=== PATIENT | male | born 1975 | race Hispanic/Latino ===

== ENCOUNTER 2017-10-19 11:14 | Emergency (ER) | payer BC, SELFPAY ==
--- NOTE | 2017-10-19 13:51 | RAD ---
PA AND LATERAL VIEWS OF CHEST: Date: 10/19/17 HISTORY: Cough, congestion, chest wall pain. FINDINGS/IMPRESSION: Comparison made with exam of 02/13/15. There are mild infiltrates in the posterior basilar lung romero suspicious for pneumonia. No pneumoth oraces or pleural effusions are seen. POS: [facility]
[2017-10-19] MEDS ORDERED: Ketorolac Tromethamine 30 MG/ML VIAL ONE (14:04)
== END 2017-10-19 16:00 | disposition home or self-care (01) ==
LOC: ERS 11:14
DX: J18.9 Pneumonia, unspecified organism (principal); R07.81 Pleurodynia; K21.9 Gastro-esophageal reflux disease without esophagitis; I10 Essential (primary) hypertension; F41.9 Anxiety disorder, unspecified; F17.220 Nicotine dependence, chewing tobacco, uncomplicated
CPT/HCPCS: 71046; 93005; 94640; 96372; J1885; J7620

== ENCOUNTER 2017-12-28 08:48 | Emergency (ER) | payer SELFPAY ==
[2017-12-28] MEDS ORDERED: Fluorescein Opthalmic Strip ONE (09:43)
[2017-12-28] MEDS ORDERED: Proparacaine 0.5% Opth 15 ML BOT ONE (09:43)
== END 2017-12-28 10:24 | disposition home or self-care (01) ==
LOC: ERS 08:48
DX: S05.01XA Injury of conjunctiva and corneal abrasion without foreign body, right eye, initial encounter (principal); K21.9 Gastro-esophageal reflux disease without esophagitis; I10 Essential (primary) hypertension; F41.9 Anxiety disorder, unspecified; F17.220 Nicotine dependence, chewing tobacco, uncomplicated; W22.8XXA Striking against or struck by other objects, initial encounter
CPT/HCPCS: 99283

== ENCOUNTER 2018-01-18 07:16 | Emergency (ER) | payer SELFPAY ==
[2018-01-18] MEDS ORDERED: Ketorolac Tromethamine 30 MG/ML VIAL ONE (07:54)
[2018-01-18 08:06] LABS: #Eosinphils 0.2 thou/uL (0.0-0.7); #Lymphocytes 1.6 thou/uL (1.20-3.40); #Monocytes 0.5 thou/uL (0.11-0.59); #Neutrophils 7.1 thou/uL (1.40-6.50); %Basophils 0.5 % (0.0-1.0); %Eosinophils 1.8 % (0.0-10.0); %Lymphocytes 17.4 % (21.0-51.0); %Monocytes 5.7 % (0.0-10.0); %Neutrophils 74.6 % (42.0-75.0); Hemoglobin 18.9 g/dL (14.0-18.0); Mean Corpuscular HGB CONC 34.9 g/dL (32.0-36.0); Mean Corpuscular Hemoglobin 31.9 pg (27.0-31.0); Mean Corpuscular Volume 91.4 fl (80.0-94.0); Mean Platelet Volume 7.4 fL (7.4-10.4); Platelet Count 216 thou/uL (130-400); RBC Distribution Width 12.8 % (11.5-14.5); Red Blood Cell (RBC) Count 5.93 mill/uL (4.70-6.10); White Blood Cell (WBC) Count 9.4 thou/uL (4.8-10.8)
[2018-01-18 08:28] LABS: Acetaminophen Less than 6.0 mcg/mL (10.0-30.0); Alcohol Less than 10 mg/dL (Less than 10); Salicylate Less than 8.0 mg/dL (15.0-30.0)
[2018-01-18 08:30] LABS: ALT (SGPT) 35 U/L (8-55); AST (SGOT) 26 U/L (5-34); Albumin 4.7 g/dL (3.5-5.0); Alkaline Phosphatase 116 U/L (40-150); Anion Gap 13 mmol/L (10-20); BUN (Urea Nitrogen) 17 mg/dL (8.9-20.6); Bilirubin, Total 1.7 mg/dL (0.2-1.2); CK (CPK) 402 U/L (30-200); Calc. Creatinine Clearance 0 mL/min (70-130); Calcium 9.5 mg/dL (7.8-10.44); Carbon Dioxide 26 mmol/L (22-29); Chloride 99 mmol/L (98-107); Estimated GFR-MDRD 67; Globulin 3.2 g/dL (2.4-3.5); Glucose 118 mg/dL (70-105); Lipase 36 U/L (8-78); Protein, Total 7.9 g/dL (6.0-8.3); Sodium 135 mmol/L (136-145)
[2018-01-18] MEDS ORDERED: Lorazepam 2 MG/ML VIAL ONE ×3 (09:43→19:40)
--- NOTE | 2018-01-18 09:44 | CT ---
CT ABDOMEN AND PELVIS WITH CONTRAST: Date: 01/18/18 HISTORY: Abdominal pain. Left-sided abdominal pain. COMPARISON: CT abdomen and pelvis from 2015. FINDINGS: Lung bases are clear. No pericardial effusion. Diffuse hepatic steatosis. Spleen, pancreas, and adrenal glands are unremarkable. There is suture material at the level of the rectosigmoid junction, similar to the comparison examina tion. Mild diverticular disease of sigmoid colon without active current inflammation. The appendix is elongated, although is without wall thickening, mucosal hyperenhancement, or periappe ndiceal inflammatory stranding. No adenopathy in the pelvis. No hydronephrosis. Skeleton is unremarkable. IMPRESSION: 1. No acute inflammatory process in the abdomen or pelvis. 2. Mild diverticular disease sigmoid colon without active inflammation. 3. Normal appendix. 4. Mild diffuse hepatic steatosis. POS: [facility]
[2018-01-18] MEDS ORDERED: ISOVUE-370 76%-LOCM 1 ML ONE (13:04)
[2018-01-18 14:26] LABS: Bilirubin Small (Negative); Blood, Urine Negative (Negative); Clarity CLEAR (Clear); Glucose, Urine (Dipstick) Negative (Negative); Leukocyte Negative (Negative); Nitrite Negative (Negative); Protein, Urine (Dipstick) 30 mg/dL (Neg-Trace); pH, Urine 6.5 (5.0-9.0)
[2018-01-18 14:32] LABS: Specific Gravity, Urine Greater than 1.060 (1.002-1.036)
[2018-01-18 14:33] LABS: Bacteria/HPF None Seen HPF (None Seen); Hyaline Casts/LPF 0-3 HYALINE CAST LPF (0-3 Hyaline); Pathc Cast-AUWi Flag 0.14 (0-2.49); RBC/HPF 0-3 HPF (0-3); Squamous Epithelial 0-3 HPF (0-3); WBC/HPF 0-3 HPF (0-3)
[2018-01-18 14:36] LABS: Amphetamine Detected (NotDetected); Barbiturates Screen Not Detected (NotDetected); Benzodiazepine Screen Detected (NotDetected); Cocaine Metabolite Screen Not Detected (NotDetected); Medtox Control Line Valid? VALID (VALID); Medtox Reader # READER 1; Methadone Not Detected (NotDetected); Methamphetamine Detected (NotDetected); Opiate Screen Not Detected (NotDetected); Oxycodone Screen Not Detected (NotDetected); Phencyclidine (PCP) Not Detected (NotDetected); THC/Cannabinoid Screen Not Detected (NotDetected); Tricyclic Screen Not Detected (NotDetected)
[2018-01-18] MEDS ORDERED: Haloperidol Lactate 5 MG/ML VIAL ONE (19:40)
[2018-01-18] MEDS ORDERED: diphenhydrAMINE 50 MG/ML VIAL ONE (19:40)
[2018-01-19] MEDS ORDERED: Ondansetron ODT 4 MG TAB ONE ×2 (06:07→20:50)
[2018-01-19] MEDS ORDERED: traMADol HCl 50 MG TAB ONE (06:40)
[2018-01-19] MEDS ORDERED: Haloperidol Lactate 5 MG/ML VIAL ONE ×2 (07:11→20:37)
[2018-01-19] MEDS ORDERED: Lorazepam 2 MG/ML VIAL ONE ×2 (07:21→20:37)
[2018-01-19] MEDS ORDERED: Ziprasidone 20 MG VIAL ONE (14:16)
--- NOTE | 2018-01-26 15:02 | EKG ---
Test Reason : ABDOMINAL PAIN Blood Pressure : / mmHG Vent. Rate : 092 BPM Atrial Rate : 092 BPM P-R Int : 148 ms QRS Dur : 080 ms QT Int : 358 ms P-R-T Axes : 066 055 056 degrees QTc Int : 442 ms Normal sinus rhythm Septal infarct , age undetermined Abnormal ECG Confirmed by DARA JOSEPH, RIGOBERTO ([id number]), editorial cartoonist NOÉ AUGUSTINE ([id number]) on 01/26/2018 3:02:12 PM Referred By: Confirmed By:RIGOBERTO DIAMOND MD
== END 2018-01-18 10:11 | disposition home or self-care (01) ==
LOC: ERS 07:16
DX: F22 Delusional disorders (principal); F32.9 Major depressive disorder, single episode, unspecified; F13.10 Sedative, hypnotic or anxiolytic abuse, uncomplicated; F41.9 Anxiety disorder, unspecified; R45.851 Suicidal ideations; K21.9 Gastro-esophageal reflux disease without esophagitis; I10 Essential (primary) hypertension; F17.220 Nicotine dependence, chewing tobacco, uncomplicated; Z79.899 Other long term (current) drug therapy
CPT/HCPCS: 74177; 80053; 80306; 80307; 81003; 81015; 82550; 83690; 84443; 85025; 93005; 96361; 96372; 96374; 96375; 96376; J1200; J1630; J1885; J2060; J3486; Q0162

== ENCOUNTER 2018-03-28 12:20 | Emergency (ER) | payer SELFPAY ==
[2018-03-28 12:57] LABS: #Basophils 0.1 thou/uL (0.0-0.2); #Lymphocytes 1.4 thou/uL (1.20-3.40); #Monocytes 0.5 thou/uL (0.11-0.59); #Neutrophils 7.6 thou/uL (1.40-6.50); %Basophils 0.8 % (0.0-1.0); %Eosinophils 0.4 % (0.0-10.0); %Lymphocytes 14.5 % (21.0-51.0); %Monocytes 5.4 % (0.0-10.0); %Neutrophils 78.9 % (42.0-75.0); Hemoglobin 17.1 g/dL (14.0-18.0); Mean Corpuscular Hemoglobin 32.7 pg (27.0-31.0); Mean Corpuscular Volume 93.6 fL (78.0-98.0); Mean Platelet Volume 7.2 fL (7.4-10.4); Platelet Count 182 thou/uL (130-400); RBC Distribution Width 12.6 % (11.5-14.5); Red Blood Cell (RBC) Count 5.22 mill/uL (4.70-6.10); White Blood Cell (WBC) Count 9.7 thou/uL (4.8-10.8)
[2018-03-28 13:22] LABS: ALT (SGPT) 24 U/L (8-55); AST (SGOT) 21 U/L (5-34); Albumin 4.3 g/dL (3.5-5.0); Alkaline Phosphatase 99 U/L (40-150); Anion Gap 15 mmol/L (10-20); BUN (Urea Nitrogen) 10 mg/dL (8.9-20.6); Bilirubin, Total 1.1 mg/dL (0.2-1.2); CK (CPK) 204 U/L (30-200); Calc. Creatinine Clearance 0 mL/min (70-130); Calcium 8.6 mg/dL (7.8-10.44); Carbon Dioxide 19 mmol/L (22-29); Chloride 110 mmol/L (98-107); Estimated GFR-MDRD 67; Globulin 2.5 g/dL (2.4-3.5); Glucose 141 mg/dL (70-105); Potassium 3.5 mmol/L (3.5-5.1); Protein, Total 6.8 g/dL (6.0-8.3); Sodium 140 mmol/L (136-145)
[2018-03-28 13:23] LABS: Bilirubin Negative (Negative); Blood, Urine Negative (Negative); Clarity CLEAR (Clear); Glucose, Urine (Dipstick) Negative (Negative); Leukocyte Negative (Negative); Nitrite Negative (Negative); Protein, Urine (Dipstick) 30 mg/dL (Neg-Trace); Specific Gravity, Urine 1.011 (1.002-1.036)
[2018-03-28 13:25] LABS: Bacteria/HPF None Seen HPF (None Seen); RBC/HPF 0-3 HPF (0-3); Squamous Epithelial 0-3 HPF (0-3); WBC/HPF 0-3 HPF (0-3)
[2018-03-28 13:28] LABS: Pathc Cast-AUWi Flag 3.05 (0-2.49)
[2018-03-28 13:32] LABS: Hyaline Casts/LPF 0-3 HYALINE CAST LPF (0-3 Hyaline); Manual Microscopic Reviewed? No Path Casts Seen
[2018-03-28 13:37] LABS: Amphetamine Detected (NotDetected); Barbiturates Screen Not Detected (NotDetected); Benzodiazepine Screen Not Detected (NotDetected); Cocaine Metabolite Screen Not Detected (NotDetected); Medtox Control Line Valid? VALID (VALID); Medtox Reader # READER 1; Methadone Not Detected (NotDetected); Methamphetamine Detected (NotDetected); Opiate Screen Not Detected (NotDetected); Oxycodone Screen Not Detected (NotDetected); Phencyclidine (PCP) Not Detected (NotDetected); THC/Cannabinoid Screen Not Detected (NotDetected); Tricyclic Screen Not Detected (NotDetected)
--- NOTE | 2018-03-30 23:32 | EKG ---
Test Reason : Blood Pressure : / mmHG Vent. Rate : 107 BPM Atrial Rate : 107 BPM P-R Int : 160 ms QRS Dur : 078 ms QT Int : 348 ms P-R-T Axes : 066 061 -09 degrees QTc Int : 464 ms Sinus tachycardia Possible Left atrial enlargement Nonspecific ST and T wave abnormality U wave Abnormal ECG Confirmed by DEEP JOSEPH, LAURA Delcid ([id number]), manuscript editor JUD SILVA ([id number]) on 03/30/2018 11:32:31 PM Referred By: Confirmed By:LAURA ADAME MD
== END 2018-03-28 14:34 | disposition home or self-care (01) ==
LOC: ERS 12:20
DX: T14.90XA Injury, unspecified, initial encounter (principal); F15.10 Other stimulant abuse, uncomplicated; K21.9 Gastro-esophageal reflux disease without esophagitis; I10 Essential (primary) hypertension; F31.9 Bipolar disorder, unspecified; F41.9 Anxiety disorder, unspecified; F17.220 Nicotine dependence, chewing tobacco, uncomplicated
CPT/HCPCS: 36415; 80053; 80306; 81003; 81015; 82550; 85025; 93005; 96360; 96361

== ENCOUNTER 2018-11-02 21:22 | Emergency (ER) | payer SELFPAY | END 2018-11-02 22:18 | disposition left against medical advice (07) | LOC: ERS 21:22 | DX: Z53.21 Procedure and treatment not carried out due to patient leaving prior to being seen by health care provider (principal) ==

== ENCOUNTER 2018-11-06 00:36 | Inpatient (IN) | payer SELFPAY ==
[2018-11-06] MEDS ORDERED: Ketorolac Tromethamine 30 MG/ML VIAL ONE (00:57)
[2018-11-06 01:08] LABS: #Basophils 0.1 thou/uL (0.0-0.2); #Eosinphils 0.2 thou/uL (0.0-0.7); #Lymphocytes 2.3 thou/uL (1.20-3.40); #Monocytes 0.9 thou/uL (0.11-0.59); %Basophils 0.4 % (0.0-1.0); %Eosinophils 1.3 % (0.0-10.0); %Lymphocytes 15.9 % (21.0-51.0); %Monocytes 6.4 % (0.0-10.0); Hemoglobin 18.7 g/dL (14.0-18.0); Mean Corpuscular HGB CONC 34.1 g/dL (32.0-36.0); Mean Corpuscular Hemoglobin 33.7 pg (27.0-31.0); Mean Corpuscular Volume 98.8 fL (78.0-98.0); Mean Platelet Volume 7.8 fL (7.4-10.4); Platelet Count 208 thou/uL (130-400); RBC Distribution Width 12.7 % (11.5-14.5); Red Blood Cell (RBC) Count 5.56 mill/uL (4.70-6.10); White Blood Cell (WBC) Count 14.5 thou/uL (4.8-10.8)
[2018-11-06 01:39] LABS: ALT (SGPT) 10 U/L (8-55); AST (SGOT) 14 U/L (5-34); Albumin 4.2 g/dL (3.5-5.0); Alkaline Phosphatase 111 U/L (40-150); Anion Gap 10 mmol/L (10-20); BUN (Urea Nitrogen) 8 mg/dL (8.9-20.6); Bilirubin, Total 0.4 mg/dL (0.2-1.2); Calc. Creatinine Clearance 0 mL/min (70-130); Carbon Dioxide 28 mmol/L (22-29); Chloride 103 mmol/L (98-107); Estimated GFR-MDRD 89; Globulin 3.1 g/dL (2.4-3.5); Glucose 122 mg/dL (70-105); Potassium 3.2 mmol/L (3.5-5.1); Protein, Total 7.3 g/dL (6.0-8.3); Sodium 138 mmol/L (136-145)
[2018-11-06 02:30] LABS: Bilirubin Negative (Negative); Blood, Urine Negative (Negative); Clarity CLEAR (Clear); Glucose, Urine (Dipstick) Negative (Negative); Leukocyte Negative (Negative); Nitrite Negative (Negative); Protein, Urine (Dipstick) Negative (Neg-Trace); Specific Gravity, Urine 1.002 (1.002-1.036); Urobilinogen 0.2 mg/dL (0.2-1.0)
[2018-11-06] MEDS ORDERED: Morphine 4 MG/ML VIAL ONE (02:47)
[2018-11-06] MEDS ORDERED: Ondansetron PF 4 MG/2 ML Vial ONE (02:47)
[2018-11-06] MEDS ORDERED: Ondansetron ODT 4 MG TAB SL PRN (04:28)
[2018-11-06] MEDS ORDERED: Ondansetron PF 4 MG/2 ML Vial IVP PRN (04:28)
[2018-11-06] MEDS: Sodium Chloride 0.9% 1,000 ML IV SCH ×2 (04:40→14:06)
[2018-11-06] MEDS: Morphine 4 MG/ML VIAL SLOW IVP PRN ×7 (04:45→23:30)
[2018-11-06 05:08] VITALS: BMI 26.0
--- NOTE | 2018-11-06 07:43 | CT ---
PRELIMINARY REPORT/[facility]/EMERGENTY AFTER-HOURS PROCEDURE CT Abdomen and Pelvis Without Contrast EXAM DATE/TIME: 11/06/2018 1:05 AM CLINICAL HISTORY: 43 years old, male; Pain; Abdominal pain; Flank; Left; Patient HX: Er 6; Left sided flank pain for 4 Days TECHNIQUE: Axial computed tomography images of the abdomen and pelvis without contrast. Coronal reformatted images were created and reviewed. COMPARISON: No relevant prior studies available. FINDINGS: Lower thorax: No acute findings. ABDOMEN: Liver: Normal. Gallbladder and bile ducts: Normal Pancreas: Minimally enlarged pancreatic body and tail, with minimal adjacent fat stranding, most comp atible with acute pancreatitis. No pseudocyst formation. Spleen: Normal. Adrenals: Normal. Kidneys and ureters: Normal. Stomach and bowel: Normal. Appendix: Appendix is normal. PELVIS: Bladder: Unremarkable as visualized. Reproductive: Unremarkable as visualized. ABDOMEN and PELVIS: Intraperitoneal space: Normal. No free air. No significant fluid collection. Bones/joints: No acute abnormality. Soft tissues: Small bilateral fat-containing inguinal hernias, without acute complications. Vasculature: Phleboliths within the pelvis. Lymph nodes: Normal. No enlarged lymph nodes. IMPRESSION: Minimally enlarged pancreatic body and tail, with minimal adjacent fat stranding, most compatible wit h acute pancreatitis. No pseudocyst formation. Thank you for allowing us to participate in the care of your patient. Dictated and Authenticated by: Simeon Mayorga MD 11/06/2018 1:46 AM Central Time ([place] & [place]) FINAL REPORT: ABDOMEN CT WITHOUT CONTRAST PELVIC CT WITHOUT CONTRAST: COMPARISON: 01/18/2018. HISTORY: Left flank pain x 4 days. FINDINGS: This report is in agreement with the preliminary report by [facility]. Inflammatory changes associated with the body and the tail of the pancreas, compatible with acute pancreatitis. Correlate with laborator y values. Bilaterally, no evidence of obstructive uropathy. Normal caliber appendix. POS: [facility]
[2018-11-06] MEDS ORDERED: Promethazine HCl 25 MG/ML VIAL IM PRN (08:23)
--- NOTE | 2018-11-06 09:26 | HP ---
HISTORY OF PRESENT ILLNESS: This is a 43-year-old male with a 3-day history of abdominal pain. The patient has a history of alcohol and drug abuse. He states he has been clean since March of 2017 after alcohol and drug rehab in [facility]. At that time, he was also noted to have a liver abscess and had a drain placed. I have not seen him since then in 2017. He was doing well until approximately 3 days ago. He began developing some left-sided abdominal pain, which has become progressively worse. At 1 a.m. this morning, he had severe pain and presented to the ER. CT at that time showed some mild inflammation of his pancreatitis consistent with acute pancreatitis. This morning, states his pain has gone from a 10 to an 8. He has been receiving IV pain medications. He describes the pain as a burning pain radiating from his back to his front. This mainly on his left side. Only jpqv-eto-yjeveiv medications that he does take are NyQuil tablets 4 at bedtime to help him sleep. Medications, Prozac and another unknown medication. PAST MEDICAL HISTORY: Hypertension, gout, liver abscess in [address] [facility], history of drug and alcohol rehab in March 2017. PAST SURGICAL HISTORY: Left knee reconstruction in 1999, umbilical hernia repair in July [address] Steinberg, colon resection by Dr. Steinberg in March 2015, and liver abscess surgery in March of 2017. FAMILY HISTORY: Mother with diabetes. Siblings with hypertension. Maternal grandmother status post CVA. Paternal uncle with diabetes. SOCIAL HISTORY: He has a common-law . He has 3 kids. He is unemployed. He has been laid off from construction. He no longer drinks or smokes. MEDICATIONS: 1. Prozac. 2. Another unknown medication. ALLERGIES: TO BUPROPION, WHICH CAUSES NUMBNESS. REVIEW OF SYSTEMS: As above. PHYSICAL EXAMINATION: VITAL SIGNS: Temperature 97.6, pulse 66, respirations 20, heart rate 99, and blood pressure 117/99. GENERAL: Moderate abdominal pain causing distress. HEENT: Clear. HEART: Regular rate and rhythm. LUNGS: Some congestion, coarse breath sounds. ABDOMEN: Soft. Normal bowel sounds. Left upper quadrant moderate tenderness. EXTREMITIES: No edema. LABORATORY DATA: White count is 14.5, H and H 18 and 54, and platelet of 208. Sodium 138, potassium 3.2, chloride 103, creatinine 0.93, glucose 122, and lipase 3259. Urine is clear. ASSESSMENT: 1. Acute pancreatitis, unsure of etiology. He may be taking excessive lwqw-qfw-nyvqvam medications. He states he does not smoke or drink at this time. 2. History of liver abscess in 2016. 3. NyQuil tablet abuse. 4. History of ethanol and drug abuse, last in March 2017. 5. Hypertension. 6. Status post colon resection in 2014. PLAN: 1. N.P.O. 2. Consult GI. 3. PPI. 4. Pain control. 5. Hydrate. Job ID: [id number]
[2018-11-06] MEDS: Potassium Chloride 30 MEQ in Sodium Chloride 0.9% 1,000 ML IV SCH ×2 (10:10→22:19)
[2018-11-06] MEDS: Pantoprazole 40 MG VIAL IVP SCH ×2 (10:11→20:06)
[2018-11-06 11:13] LABS: Anion Gap 6 mmol/L (10-20); BUN (Urea Nitrogen) 6 mg/dL (8.9-20.6); Calc. Creatinine Clearance 136 mL/min (70-130); Calcium 8.4 mg/dL (7.8-10.44); Carbon Dioxide 26 mmol/L (22-29); Chloride 110 mmol/L (98-107); Estimated GFR-MDRD Greater than 90; Glucose 84 mg/dL (70-105); Lipase 236 U/L (8-78); Potassium 3.9 mmol/L (3.5-5.1); Sodium 138 mmol/L (136-145)
[2018-11-06] MEDS ORDERED: Lactated Ringer's 1,000 ML IV SCH (15:15)
--- NOTE | 2018-11-06 16:45 | ULT ---
GALLBLADDER ULTRASOUND: HISTORY: Abnormal liver function tests. Pancreatitis. TECHNIQUE: Utilizing a Multi-Hertz transducer, sonographic imaging of the right upper quadrant is performed in t he longitudinal and transverse planes. FINDINGS: The proximal body and head of the pancreas have an overall normal echotexture. The remainder of the pancreas is obscured by bowel gas. There appears to be a small amount of fluid between the liver and gallbladder. Normal hepatic parenchymal echotexture. No hepatic masses or intrahepatic biliary dilatation. The c ontour of the hepatic margin is maintained. The right hepatic lobe measures 15.3 cm. No sonographic evidence of cholelithiasis, gallbladder wall thickening, or pericholecystic fluid. Ne gative Gayle sign. The main portal vein is patent. Appropriate directional flow. The common bile duct diameter is 0.35 cm. The right kidney has a normal cortical echotexture. No hydronephrosis. The right kidney measures 10 .7 x 5.1 x 5.8 cm. IMPRESSION: 1. No sonographic evidence of cholelithiasis or cholecystitis. 2. Possible small amount of fluid in the gallbladder fossa. POS: [facility]
--- NOTE | 2018-11-06 20:41 | CON ---
DATE OF CONSULTATION: 11/06/2018 CHIEF COMPLAINT: Abdominal pain. HISTORY OF PRESENT ILLNESS: Mr. Patterson is a 43-year-old man who woke up Sunday morning, 4 days ago with aching midback pain. This pain persisted all day and then on Sunday, it started wrapping around more toward the left upper quadrant as well. He did not have any vomiting with it. He ultimately went to the emergency room earlier this morning and had a CT scan performed that showed changes of edematous pancreatitis and elevated lipase consistent with pancreatitis. He was given IV fluids and admitted for further care. He has had no prior pancreatitis. He states he had half of one beer on Sunday night before the onset of the pain. He does not drink alcohol otherwise. He has a history of prior methamphetamine use, but has been off this and had a urine drug screen for his probation a couple of days ago, which he reports was negative. He has had some nausea today, but no vomiting. He had a normal bowel movement yesterday. No blood in the stool. Weight has been stable. No fevers. PAST MEDICAL HISTORY: He has had liver abscess. He had recurrent chronic diverticulitis and this was treated with colon resection. He has a history of polysubstance abuse. PAST SURGICAL HISTORY: Knee surgery, umbilical hernia repair, colon resection in 2014. Liver abscess drainage, treated in [facility] 2016. FAMILY HISTORY: Negative for GI malignancy. SOCIAL HISTORY: He has been off alcohol and drugs. He is currently unemployed. ALLERGIES: BUPROPION. MEDICATIONS: 1. Fluoxetine. 2. Buspirone. REVIEW OF SYSTEMS: Negative x10 systems reviewed except as stated in the history of present illness. PHYSICAL EXAMINATION: VITAL SIGNS: Temperature 97.8, pulse 51, blood pressure 119/76. GENERAL: He is in no acute distress. He is alert and oriented x3. HEENT: Eyes have no scleral icterus. Oropharynx is clear without lesions. No cervical or supraclavicular lymphadenopathy. LUNGS: Clear to auscultation bilaterally. HEART: Regular rate and rhythm without murmur. ABDOMEN: Soft, has minimal tenderness in the epigastric region without guarding. Bowel sounds are present. EXTREMITIES: No lower extremity edema. Cranial nerves are grossly intact. LABORATORY DATA: White blood cell count 14.5, hemoglobin 18.7, platelets 208. INR 1.0. Creatinine 0.78, bilirubin 0.4, AST 14, ALT 10, alkaline phosphatase 111, albumin 4.2, triglycerides 117. Lipase was 3259 on presentation earlier this morning and is down to 236, at 10 a.m. this morning. IMPRESSION: Acute edematous mild pancreatitis without evidence of secondary organ failure or necrosis. He did have a CT scan without contrast that did show pancreatic enlargement with adjacent fat stranding. He is hemoconcentrated on presentation with a hemoglobin of 18.3. He received 2 L bolus in the emergency room and has received ongoing fluids since then. RECOMMENDATIONS: 1. Continue IV fluids. 2. Check ultrasound of the gallbladder, however, he states that his liver tests were completely normal and not suggestive of a biliary pancreatitis. He reports only half a beer the evening before onset of the pancreatitis and no prior history of chronic pancreatitis. His triglycerides are normal. 3. He can potentially start clear liquids tomorrow if his pain is improving. Job ID: [id number]
[2018-11-07] MEDS: Potassium Chloride 30 MEQ in Sodium Chloride 0.9% 1,000 ML IV SCH ×2 (00:18→05:29)
[2018-11-07] MEDS: Morphine 4 MG/ML VIAL SLOW IVP PRN ×3 (02:30→08:38)
[2018-11-07 05:55] LABS: #Basophils 0.1 thou/uL (0.0-0.2); #Eosinphils 0.1 thou/uL (0.0-0.7); #Lymphocytes 1.7 thou/uL (1.20-3.40); #Monocytes 0.4 thou/uL (0.11-0.59); #Neutrophils 5.2 thou/uL (1.40-6.50); %Basophils 0.7 % (0.0-1.0); %Eosinophils 0.9 % (0.0-10.0); %Lymphocytes 22.9 % (21.0-51.0); %Monocytes 5.4 % (0.0-10.0); %Neutrophils 70.1 % (42.0-75.0); Hemoglobin 16.3 g/dL (14.0-18.0); Mean Corpuscular HGB CONC 33.4 g/dL (32.0-36.0); Mean Corpuscular Hemoglobin 33.1 pg (27.0-31.0); Mean Platelet Volume 7.7 fL (7.4-10.4); Platelet Count 176 thou/uL (130-400); RBC Distribution Width 12.3 % (11.5-14.5); Red Blood Cell (RBC) Count 4.92 mill/uL (4.70-6.10); White Blood Cell (WBC) Count 7.4 thou/uL (4.8-10.8)
[2018-11-07 06:18] LABS: ALT (SGPT) 7 U/L (8-55); AST (SGOT) 12 U/L (5-34); Albumin 3.4 g/dL (3.5-5.0); Alkaline Phosphatase 88 U/L (40-150); Anion Gap 11 mmol/L (10-20); BUN (Urea Nitrogen) 5 mg/dL (8.9-20.6); Bilirubin, Total 0.4 mg/dL (0.2-1.2); Calc. Creatinine Clearance 132 mL/min (70-130); Calcium 8.7 mg/dL (7.8-10.44); Carbon Dioxide 23 mmol/L (22-29); Cardiac Risk 3.3 (Less than 4.5); Chloride 108 mmol/L (98-107); Cholesterol 93 mg/dl (< 200 Desired); Estimated GFR-MDRD Greater than 90; Globulin 2.4 g/dL (2.4-3.5); Glucose 105 mg/dL (70-105); HDL Cholesterol 28 mg/dL (>60 Neg Risk); LDL Cholesterol, Calculated 51 mg/dL; Lipase 70 U/L (8-78); Potassium 4.2 mmol/L (3.5-5.1); Protein, Total 5.8 g/dL (6.0-8.3); Sodium 138 mmol/L (136-145); Triglycerides 71 mg/dL (Less than 150)
[2018-11-07] MEDS ORDERED: Sodium Chloride 0.9% 1,000 ML IV SCH (07:00)
--- NOTE | 2018-11-07 08:31 | PRG ---
DATE OF SERVICE: 11/07/2018 SUBJECTIVE: The patient's pain has improved dramatically. However, he still has occasional bouts of pain. OBJECTIVE: VITAL SIGNS: Temperature 98.1, pulse 69, respirations 18, pulse ox 98, and blood pressure 122/84. HEART: Regular rate and rhythm. LUNGS: Clear. ABDOMEN: Soft and nontender. LABORATORY DATA: White count 7.4, H and H 16 and 48. Electrolytes normal. Potassium 4.2, creatinine 0.8. Lipase 70. ASSESSMENT: 1. Acute pancreatitis, possibly due to alcohol or to a fatty diet. Ultrasound unremarkable. 2. History of liver abscess in 2016. 3. NyQuil tablet abuse. 4. History of ethanol and drug abuse, last in March 2017. 5. Hypertension. 6. Status post colon resection in 2014. PLAN: 1. Advance diet. 2. Increase activity. 3. If the patient does well, can possibly go home soon. Job ID: [id number]
[2018-11-07] MEDS: Pantoprazole 40 MG VIAL IVP SCH ×2 (08:39→20:55)
[2018-11-07] MEDS: FLUoxetine HCl 20 MG CAP PO SCH (11:02)
[2018-11-07] MEDS: busPIRone HCl 10 MG TAB PO SCH ×2 (11:02→20:55)
[2018-11-07] MEDS: HYDROcodone/Acetaminophen 7.5/325 mg Tablet PO PRN ×3 (12:55→20:56)
[2018-11-07] MEDS: Sodium Chloride 0.9% 1,000 ML IV SCH ×2 (17:13→19:14)
--- NOTE | 2018-11-07 18:54 | PRG ---
DATE OF SERVICE: 11/07/2018 SUBJECTIVE: Mr. Patterson is feeling better today. He is tolerating a full liquid diet. He has been afebrile. OBJECTIVE: VITAL SIGNS: Temperature is 97.5, blood pressure 156/88. LUNGS: Clear. ABDOMEN: Soft and nontender. Scaphoid. There is mild voluntary guarding, but no rebound. There is no distention. Bowel sounds are positive. SKIN: Skin was notable for multiple tattoos. LABORATORY DATA: White count was 14.5 yesterday, 7.4 today; MCV 99; hemoglobin 16, down from 18.7; platelet count 176. Liver function tests normal. Lipase is down to 70 now. Ultrasound showed no evidence of stones or dilated bile duct. It, however, showed some minimal fat stranding. ASSESSMENT: 1. Acute pancreatitis noted on CAT scan with a lipase of 3259 on presentation. Etiologies include the patient had about half beer day before admission. He states he does not drink alcohol regularly. He is recovering from previous substance abuse, but states he use no illicit drugs since going to recovery last year. He states he has had no change in medications. He had normal triglycerides and denies starting any new medications. His dose of one of his medications he used at [facility] was increased about three weeks ago. 2. Acute pancreatitis, markedly improved. 3. History of substance abuse in the past. He has normal liver enzymes and we would offer hepatitis C screening, we did this in tomorrow's labs. We will advance diet to regular low fat. If the patient continues to do well, hopefully he can go home in the next 24 to 48 hours. Job ID: [id number]
[2018-11-08] MEDS: HYDROcodone/Acetaminophen 7.5/325 mg Tablet PO PRN ×3 (01:24→09:55)
[2018-11-08 04:26] LABS: #Basophils 0.1 thou/uL (0.0-0.2); #Eosinphils 0.2 thou/uL (0.0-0.7); #Lymphocytes 2.1 thou/uL (1.20-3.40); #Monocytes 0.6 thou/uL (0.11-0.59); #Neutrophils 5.6 thou/uL (1.40-6.50); %Basophils 0.7 % (0.0-1.0); %Eosinophils 1.8 % (0.0-10.0); %Lymphocytes 24.8 % (21.0-51.0); %Monocytes 6.8 % (0.0-10.0); %Neutrophils 65.9 % (42.0-75.0); Hemoglobin 17.3 g/dL (14.0-18.0); Mean Corpuscular HGB CONC 33.1 g/dL (32.0-36.0); Mean Corpuscular Hemoglobin 32.8 pg (27.0-31.0); Mean Corpuscular Volume 99.2 fL (78.0-98.0); Mean Platelet Volume 7.4 fL (7.4-10.4); Platelet Count 181 thou/uL (130-400); RBC Distribution Width 12.5 % (11.5-14.5); Red Blood Cell (RBC) Count 5.27 mill/uL (4.70-6.10); White Blood Cell (WBC) Count 8.6 thou/uL (4.8-10.8)
[2018-11-08 04:42] LABS: ALT (SGPT) 9 U/L (8-55); AST (SGOT) 13 U/L (5-34); Albumin 3.6 g/dL (3.5-5.0); Alkaline Phosphatase 93 U/L (40-150); Anion Gap 11 mmol/L (10-20); BUN (Urea Nitrogen) 8 mg/dL (8.9-20.6); Bilirubin, Total 0.4 mg/dL (0.2-1.2); Calc. Creatinine Clearance 132 mL/min (70-130); Carbon Dioxide 24 mmol/L (22-29); Chloride 108 mmol/L (98-107); Estimated GFR-MDRD Greater than 90; Globulin 2.7 g/dL (2.4-3.5); Glucose 99 mg/dL (70-105); Lipase 169 U/L (8-78); Protein, Total 6.3 g/dL (6.0-8.3); Sodium 139 mmol/L (136-145)
[2018-11-08] MEDS: FLUoxetine HCl 20 MG CAP PO SCH (08:09)
[2018-11-08] MEDS: busPIRone HCl 10 MG TAB PO SCH (08:11)
[2018-11-08] MEDS: Pantoprazole 40 MG VIAL IVP SCH (08:12)
[2018-11-08 09:16] VITALS: BP 133/95; TEMP 97.5
--- NOTE | 2018-11-08 10:55 | DIS ---
DATE OF ADMISSION: 11/06/2018 DATE OF DISCHARGE: 11/08/2018 DISCHARGE DIAGNOSES: 1. Acute pancreatitis. 2. Alcohol abuse. 3. History of liver abscess in 2017. 4. NyQuil tablet abuse. 5. History of alcohol and drug abuse in last March of 2017. 6. Hypertension. 7. Depression. 8. Status post colon resection in 2014. DISCHARGE MEDICATIONS: 1. Fluoxetine 40 mg p.o. daily. 2. Buspirone 30 p.o. b.i.d. 3. Hydrocodone 7.5/325 q.4 p.r.n., #30. 4. Ambien 10 at bedtime p.r.n., #30. BRIEF HISTORY: This is a 43-year-old male, who presents with acute abdominal pain. The patient had been alcohol and drug free he states since March of 2017. However, recently he states he had a half a beer prior to the onset of acute abdominal pain. It became progressively worse and presents to emergency room and was found to have elevated lipase consistent with acute pancreatitis. HOSPITAL COURSE: The patient was placed n.p.o. Over 2 days, his symptoms improved significantly. His lipase went from 3259 to 169. He is doing much better. He is tolerating a bland diet. CT scan of his abdomen was found to be unremarkable except for evidence of acute pancreatitis. He will be discharged at this time and follow up in the office. He will follow up with Dr. Mohan and he will follow up with myself in the next week. Job ID: [id number]
== END 2018-11-08 12:26 | disposition home or self-care (01) | DRG 440 ==
LOC: ERS 00:36 → ONC 04:18
PROVIDERS: ADMIT Family Medicine; ATTEND Family Medicine
DX: K85.90 Acute pancreatitis without necrosis or infection, unspecified (principal); I10 Essential (primary) hypertension; M10.9 Gout, unspecified; F32.9 Major depressive disorder, single episode, unspecified; F10.11 Alcohol abuse, in remission; F19.11 Other psychoactive substance abuse, in remission; J45.909 Unspecified asthma, uncomplicated; Z98.890 Other specified postprocedural states; F41.9 Anxiety disorder, unspecified; Z79.899 Other long term (current) drug therapy; Z90.49 Acquired absence of other specified parts of digestive tract
CPT/HCPCS: 36415; 74176; 76705; 80053; 80061; 81003; 83690; 84478; 85025; 96361; 96374; 96375; C9113; J1885; J2270; J2405; J2550; J3480; J7050; J7620; Q0162

== ENCOUNTER 2023-09-07 17:50 | Emergency (ER) | payer OTHER, SELFPAY ==
[2023-09-07 19:33] LABS: SARS-CoV-2 NAA Rapid Test Not Detected (NotDetected)
== END 2023-09-07 20:00 | disposition home or self-care (01) ==
LOC: ERS 17:50
DX: J20.9 Acute bronchitis, unspecified (principal); M54.6 Pain in thoracic spine
CPT/HCPCS: 71046